=== PATIENT | male | born 1990 | race Two or more races ===

== ENCOUNTER 2022-08-10 10:37 | Emergency (ER) | payer MEDICAID ==
[~2022-08-10] VITALS: Ht 167.6 cm; Wt 74.0 kg
[2022-08-10 10:38] VITALS: BP 143/102
[2022-08-10 12:48] LABS: BASOPHILS % 0.6 % (0.0-2.0); EOSINOPHILS % 0.6 % (0.0-5.0); HEMATOCRIT. 47.1 % (42.0-52.0); HEMOGLOBIN. 15.7 g/dL (14.0-18.0); LYMPHOCYTES % 11.6 % (20.0-50.0); MEAN CORPUSCULAR HEMOGLOBIN 30.4 pg (28.0-32.0); MEAN CORPUSCULAR VOLUME 90.9 fL (80.0-94.0); MEAN PLATELET VOLUME 7.9 fl (7.4-10.4); MONOCYTES % 5.3 % (2.0-8.0); NEUTROPHILS % 81.9 % (40.0-76.0); PLATELET 314 x1000/uL (130-400); RED BLOOD CELL COUNT 5.18 mill/uL (4.7-6.1)
[2022-08-10 12:53] LABS: CHLORIDE 107 mEq/L (98-107)
[2022-08-10 13:02] LABS: ETHANOL BLOOD < 10 mg/dL
[2022-08-10] MEDS ORDERED: NALO4SPR BOTHNSTRLS (13:51)
== END 2022-08-10 15:30 | disposition home or self-care (01) ==
LOC: ER 10:37
DX: T50.7X1A Poisoning by analeptics and opioid receptor antagonists, accidental (unintentional), initial encounter (principal); X58.XXXA Exposure to other specified factors, initial encounter
CPT/HCPCS: 36415; 80053; 80320; 85025; 99283; G0480

== ENCOUNTER 2024-05-07 12:03 | Emergency (ER) | payer MEDICAID ==
[~2024-05-07] VITALS: Ht 175.3 cm; Wt 85.0 kg
[~2024-05-07 12:03] MED LIST: NALO4SPR BOTHNSTRLS
[2024-05-07 12:05] VITALS: O2SAT 97
[2024-05-07 12:32] VITALS: TEMP 36.33624
[2024-05-07] MEDS: LIDOCAINE HCL/EPINEPHRINE 1%-EPI 1:100,000 20ML VIAL INFIL ONE (12:45)
[2024-05-07 12:57] LABS: BASOPHILS % 0.6 % (0.0-2.0); EOSINOPHILS % 3.7 % (0.0-5.0); HEMATOCRIT. 43.6 % (42.0-52.0); HEMOGLOBIN. 14.4 g/dL (14.0-18.0); LYMPHOCYTES % 22.2 % (20.0-50.0); MEAN CORPUSCULAR HEMOGLOBIN 30.1 pg (28.0-32.0); MEAN CORPUSCULAR VOLUME 91.3 fL (80.0-94.0); MEAN PLATELET VOLUME 7.8 fl (7.4-10.4); NEUTROPHILS % 65.5 % (40.0-76.0); PLATELET 256 x1000/uL (130-400); RED BLOOD CELL COUNT 4.78 mill/uL (4.7-6.1); RED CELL DISTRIBUTION WIDTH 13.7 % (11.6-14.6); WHITE BLOOD COUNT 5.9 x1000/uL (4.5-11.0)
[2024-05-07 13:05] LABS: CHLORIDE 105 mEq/L (98-107); POTASSIUM 3.9 mEq/L (3.5-5.1); SODIUM 137 mEq/L (136-145)
[2024-05-07 13:06] LABS: CALCIUM 9.7 mg/dL (8.7-10.4); CARBON DIOXIDE 23 mEq/L (21-32)
[2024-05-07] MEDS: SODIUM CHLORIDE 0.9% 1,000 ML IV ONE ×2 (13:09→14:38)
[2024-05-07] MEDS: LEVETIRACETAM 500MG PREMIX 100 ML IV ONE ×3 (13:09→14:32)
[2024-05-07 13:11] LABS: CREATININE 1.3 mg/dL (0.6-1.3); GLUCOSE 154 mg/dL (70-105); UREA NITROGEN BLOOD 9 mg/dL (9-23)
[2024-05-07 13:13] LABS: ALANINE AMINOTRANSFERASE 29 IU/L (10-49); ALBUMIN 4.7 g/dL (3.2-4.8); ASPARTATE AMINOTRANSFERASE 37 IU/L (<34); BILIRUBIN TOTAL 0.6 mg/dL (0.1-1.0)
[2024-05-07 13:14] LABS: PROTEIN TOTAL 7.3 g/dL (6.0-8.3)
[2024-05-07] MEDS: TETANUS, DIPHTHERIA, PERTUSSIS VAC/PF 0.5ML (>10YR OLD) IM ONE (13:16)
[2024-05-07 13:17] LABS: TROPONIN I HIGH SENSITIVITY < 4 ng/L (3.0-53)
[2024-05-07] MEDS ORDERED: IBUP-2028 MT (14:35)
[2024-05-07] MEDS ORDERED: AMOX1TAB16 MT (14:35)
[2024-05-07] MEDS: KETOROLAC 15MG/ML VIAL IV ONE (15:26)
[2024-05-07 15:30] LABS: PROTHROMBIN TIME 10.7 sec (9.6-11.0)
[2024-05-07] MEDS: BACITRACIN ZINC OINT UDPKT TOP ONE (17:44)
[2024-05-07 18:00] VITALS: BP 122/95; PULSE 70; RESP 21; O2SAT 99
[2024-05-07] MEDS ORDERED: IOHEXOL-300 100 ML BOTTLE ONE (22:16)
== END 2024-05-07 18:35 | disposition home or self-care (01) ==
LOC: ER 12:03
DX: S01.511A Laceration without foreign body of lip, initial encounter (principal); S20.312A Abrasion of left front wall of thorax, initial encounter; X58.XXXA Exposure to other specified factors, initial encounter; Y93.89 Activity, other specified; Y92.89 Other specified places as the place of occurrence of the external cause; Y99.8 Other external cause status
CPT/HCPCS: 80053; 85025; 85610; 85730; 84484; 36415; 70450; 70486; 71260; 90715; 93005; 12011; 90471; 96365; 96366; 99285; Q9967; J1953; J1885; J3490; J7030; Z7610

== ENCOUNTER 2024-06-21 18:47 | Emergency (ER) | payer MEDICAID ==
[~2024-06-21] VITALS: Ht 172.7 cm; Wt 72.5 kg
[~2024-06-21 18:47] MED LIST changes: +AMOX1TAB16 MT; +IBUP-2028 MT
[2024-06-21 19:01] VITALS: BP 139/97; PULSE 111; RESP 14; TEMP 98; O2SAT 97
== END 2024-06-21 21:00 | disposition left against medical advice (07) ==
LOC: ER 18:47
DX: M79.602 Pain in left arm (principal); R68.84 Jaw pain; Z53.21 Procedure and treatment not carried out due to patient leaving prior to being seen by health care provider

== ENCOUNTER 2024-06-23 17:12 | Emergency (ER) | payer MEDICAID ==
[~2024-06-23] VITALS: Ht 172.7 cm; Wt 73.0 kg
[2024-06-23 17:17] VITALS: TEMP 98.8; O2SAT 100
[2024-06-23] MEDS ORDERED: ACETAMINOPHEN 325MG TABLET PO ONE (18:15)
[2024-06-23] MEDS: ACETAMINOPHEN 325MG TABLET PO NR (20:02)
[2024-06-23 20:10] VITALS: BP 145/79; PULSE 81; RESP 18; O2SAT 99
== END 2024-06-23 20:11 | disposition home or self-care (01) ==
LOC: ER 17:12
DX: S09.90XA Unspecified injury of head, initial encounter (principal); Z86.59 Personal history of other mental and behavioral disorders; Y04.0XXA Assault by unarmed brawl or fight, initial encounter; Y93.89 Activity, other specified; Y92.89 Other specified places as the place of occurrence of the external cause; Y99.9 Unspecified external cause status
CPT/HCPCS: 99284